=== PATIENT | male | born 1995 | race African-American/Black ===

== ENCOUNTER 2023-12-19 23:24 | Emergency (ER) | payer SELFPAY, OTHER ==
[2023-12-20] MEDS ORDERED: IBUPROFEN 400 MG TAB ONE (00:21)
[2023-12-20] MEDS ORDERED: TRAMADOL HCL 50 MG TAB ONE (00:22)
[2023-12-20] MEDS ORDERED: GUAIFENESIN/DM 5 ML UCUP ONE (00:22)
[2023-12-20 01:08] LABS: Absolute Basophils 0.1 K/uL (0-0.5); Absolute Eosinophils 0.2 K/uL (0-0.5); Absolute Lymphocytes (CBC) 3.5 K/uL (0.7-4.9); Absolute Monocytes 1.1 K/uL (0.1-1.3); Absolute Neutrophil 6.4 K/uL (1.8-8.0); Basophils % 0.5 % (0-1.3); Hemoglobin 13.7 g/dL (13.6-17.9); Lymphocytes % 30.9 % (15.3-44.8); MCH 31.1 pg (27.0-35.0); MCHC 33.4 g/dL (32.0-36.0); MCV 93.1 fL (80-100); MPV 7.7 fL (7.6-11.3); Monocytes % 9.9 % (3.3-12.3); Neutrophils % 56.7 % (41.7-73.7); Nucleated Red Blood Cells % 0.1 % (0-0); Platelets 314 thou/uL (152-406); Red Cell Distribution Width 13.2 % (12.1-15.2)
[2023-12-20 01:16] LABS: Anion Gap 6.5 mEq/L (5.0-15.0); Potassium 3.5 mEq/L (3.5-5.1)
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
[2023-12-20 02:40] VITALS: BP 154/87; TEMP 98.4; O2SAT 97
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
== END 2023-12-20 02:22 | disposition home or self-care (01) ==
LOC: ER 23:24
DX: S63.522A Sprain of radiocarpal joint of left wrist, initial encounter (principal); J20.9 Acute bronchitis, unspecified; V49.40XA Driver injured in collision with unspecified motor vehicles in traffic accident, initial encounter; F17.210 Nicotine dependence, cigarettes, uncomplicated
CPT/HCPCS: 36415; 71045; 80048; 85025; 87804; 99284